=== PATIENT | female | born 1975 | race Two or more races ===

== ENCOUNTER 2017-11-23 12:00 | Inpatient (IN) | payer OTHER ==
[~2017-11-23] VITALS: Ht 170.2 cm; Wt 76.7 kg
[2017-12-02] MEDS ORDERED: CODE1TAB37 PO (08:50)
== END 2017-12-02 11:31 | DRG 743 ==
LOC: O/R 11-30 05:49 → SURH 11-30 09:00 → OB/GYN 11-30 15:20
PROVIDERS: Obstetrics & Gynecology
PROC: 0USG0ZZ Reposition Vagina, Open Approach (ICD-10-PCS; 2017-11-30)
PROC: 0TJB8ZZ Inspection of Bladder, Via Natural or Artificial Opening Endoscopic (ICD-10-PCS; 2017-11-30)
PROC: 0UT97ZZ Resection of Uterus, Via Natural or Artificial Opening (ICD-10-PCS; principal; 2017-11-30 09:00)
PROC: 0JQC0ZZ Repair Pelvic Region Subcutaneous Tissue and Fascia, Open Approach (ICD-10-PCS; 2017-11-30 09:00)
DX: D25.1 Intramural leiomyoma of uterus (principal); N72 Inflammatory disease of cervix uteri; N80.0 Endometriosis of uterus; N81.3 Complete uterovaginal prolapse; N92.0 Excessive and frequent menstruation with regular cycle; N94.5 Secondary dysmenorrhea; G89.18 Other acute postprocedural pain

== ENCOUNTER → 2020-05-08 | Outpatient (CLI) | payer OTHER ==
[~2020-05-08] MED LIST: CODE1TAB37 PO
== END | disposition home or self-care (01) ==
LOC: RAD 08:45 → MAMO-SONO 08:45
PROVIDERS: ATTEND Physical Medicine & Rehabilitation
DX: M75.31 Calcific tendinitis of right shoulder (principal); M75.111 Incomplete rotator cuff tear or rupture of right shoulder, not specified as traumatic

== ENCOUNTER 2021-08-04 18:33 | Outpatient (CLI) | payer OTHER | END 2021-08-04 23:00 | disposition home or self-care (01) | LOC: LAB 18:33 | PROVIDERS: ATTEND Obstetrics & Gynecology | DX: Z20.818 Contact with and (suspected) exposure to other bacterial communicable diseases (principal); Z20.828 Contact with and (suspected) exposure to other viral communicable diseases ==